=== PATIENT | female | born 1980 | race Caucasian/White ===

== ENCOUNTER 2017-09-01 18:41 | Emergency (ER) | payer OTHER ==
[2017-09-01 18:47] VITALS: BP 132/84; PULSE 79; TEMP 98.8; BMI 24.1
--- NOTE | 2017-09-01 20:00 | PDOC ---
History of Present Illness - History of Present Illness Initial Comments: 09/01/17 19:48 The patient is a 37 yo f w/ PMH IBS who comes into the ED c/o a 1 day history of abdominal cramping, nausea, and bloody diarrhea. The patient states that she began to have a gradual onset of lower abdominal cramping, nausea and frequent bowel movements. The bowel movements started off solid, then progressed to watery diarrhea. For the last 5-6 bowel movements, the patient noticed "red flakes" in the bottom of the toilet and on the toilet tissue. The patient also experienced chills, promping her to seek medical evaluation. The patient went to an urgent care center where a rectal exam was performed, revealing hemorrhoids and heme positive stool. The patient was then sent to the ER from urgent care. The patient states that this diarrhea episode is different from her normal episodes in that it is associated with chills and the blood. The patient had a similar episode of blood in her stools in the past, but states that they were not this severe and were not associated with chills. The patient does not follow regularly with a GI doctor, but was diagnosed with IBS by one 7 years ago. 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 Patient denies fever, vomiting, chest pain, shortness of breath, sick contacts or household members with similar symptoms. 09/01/17 20:54 <Manjeet Kern - Last Filed: 09/01/17 22:47> <Diana Jacobs - Last Filed: 09/02/17 04:49> - General Chief Complaint: Rectal Bleed Stated Complaint: RECTAL BLEED Time Seen by Provider: 09/01/17 19:21 Past History - Travel Traveled outside of the country in the last 30 days: No Close contact w/someone who was outside of country & ill: No - Past Medical History COPD: No GI Disorders: Yes (MILD IBS) - Suicide/Smoking/Psychosocial Hx Smoking History: Never smoked Hx Alcohol Use: Yes (SOCIAL) Drug/Substance Use Hx: No Substance Use Type: None <Manjeet Kern - Last Filed: 09/01/17 22:47> <Diana Jacobs - Last Filed: 09/02/17 04:49> - Past Medical History Allergies/Adverse Reactions: Allergies Allergy/AdvReac Type Severity Reaction Status Date / Time amoxicillin Allergy Hives Verified 09/01/17 20:33 Sulfa (Sulfonamide Allergy Hives Verified 09/01/17 20:33 Antibiotics) Home Medications: Ambulatory Orders NK [No Known Home Medication] 09/01/17 Review of Systems - Review of Systems Constitutional: Yes: Chills. No: Fever, Malaise Respiratory: No: Cough, Shortness of Breath Cardiac (ROS): No: Chest Pain, Edema, Palpitations ABD/GI: Yes: Blood Streaked Bowels, Diarrhea, Nausea. No: Abdominal Distended, Abd. Pain w/ defecation, Vomiting, Tarry Stools : No: Burning, Dysuria, Frequency Musculoskeletal: No: Back Pain, Joint Pain Neurological: No: Headache, Numbness, Tingling <Manjeet Kern - Last Filed: 09/01/17 22:47> *Physical Exam - Vital Signs Last Vital Signs Temp Pulse Resp BP Pulse Ox 98.8 F 79 20 132/84 98 09/01/17 18:43 09/01/17 18:43 09/01/17 18:43 09/01/17 18:43 09/01/17 18:43 - Physical Exam General Appearance: Yes: Appropriately Dressed. No: Apparent Distress Neck: positive: Trachea midline Respiratory/Chest: positive: Lungs Clear, Normal Breath Sounds. negative: Chest Tender, Respiratory Distress, Accessory Muscle Use Cardiovascular: positive: Regular Rhythm, Regular Rate, S1, S2. negative: Edema , JVD, Murmur, Gallop/S3, Gallop/S4 Gastrointestinal/Abdominal: positive: Normal Bowel Sounds, Tender (mild discomfort in the lower quadrants), Flat, Soft, Increased Bowel Sounds. negative: Distended, Guarding, Rebound Musculoskeletal: positive: Normal Inspection Extremity: positive: Normal Inspection Integumentary: positive: Normal Color, Dry, Warm Neurologic: positive: Fully Oriented, Alert, Normal Mood/Affect, Normal Response <Manjeet Kern - Last Filed: 09/01/17 22:47> - Vital Signs Last Vital Signs Temp Pulse Resp BP Pulse Ox 98.8 F 79 20 132/84 98 09/01/17 18:43 09/01/17 18:43 09/01/17 18:43 09/01/17 18:43 09/01/17 18:43 <Diana Jacobs - Last Filed: 09/02/17 04:49> ED Treatment Course - LABORATORY CBC & Chemistry Diagram: 09/01/17 21:02 09/01/17 21:45 <Manjeet Kern - Last Filed: 09/01/17 22:47> - LABORATORY CBC & Chemistry Diagram: 09/01/17 21:02 09/01/17 21:45 - ADDITIONAL ORDERS Additional order review: Laboratory Results 09/01/17 09/01/17 09/01/17 21:45 21:17 21:02 PT with INR 12.10 H INR 1.07 Sodium 139 Potassium 3.3 L Chloride 106 Carbon Dioxide 25 Anion Gap 8 BUN 10 Creatinine 0.5 L Creat Clearance w eGFR > 60 Random Glucose 86 Calcium 7.6 L Total Bilirubin 0.6 AST 14 L ALT 21 Alkaline Phosphatase 44 L Total Protein 6.0 L Albumin 3.4 Stool Occult Blood Negative 09/01/17 21:02 PT with INR INR Sodium Cancelled Potassium Cancelled Chloride Cancelled Carbon Dioxide Cancelled Anion Gap Cancelled BUN Cancelled Creatinine Cancelled Creat Clearance w eGFR Cancelled Random Glucose Cancelled Calcium Cancelled Total Bilirubin Cancelled AST Cancelled ALT Cancelled Alkaline Phosphatase Cancelled Total Protein Cancelled Albumin Cancelled Stool Occult Blood 09/01/17 21:02 RBC 4.28 MCV 91.7 MCHC 34.0 RDW 12.9 MPV 8.9 Neutrophils % 70.1 Lymphocytes % 22.9 Monocytes % 5.6 Eosinophils % 1.1 Basophils % 0.3 - Medications Given in the ED: ED Medications Discontinued Medications Generic Name Dose Route Start Last Admin Trade Name Torreyq PRN Reason Stop Dose Admin Potassium Chloride 40 meq 09/01/17 22:26 09/01/17 22:38 K-Dur - PO 09/01/17 22:27 40 meq ONCE ONE Administration Sodium Chloride 1,000 ml 09/01/17 20:41 09/01/17 21:06 Normal Saline - IV 09/01/17 20:42 1,000 ml ONCE ONE Administration <Diana Jacobs - Last Filed: 09/02/17 04:49> Medical Decision Making - Medical Decision Making 09/01/17 20:04 The patient is a 37 yo f w/ PMH IBS who comes into the ED c/o a one day history of abdominal cramping, nausea, diarrhea and blood flakes in her stool. The patient has had a similar episode in the past, but states that it was not associated with chills. Patient states that she had no measurable fever at home and is afebrile in the ED. -CBC, CMP -UA, upreg -1L NS bolus 09/01/17 22:38 -CBC WNL, no acute Hb drop noted. -CMP shows low potassium at 3.3, will replete with 40meq KCL PO -Guiac negative for occult blood. -given the patient is having no active diarrhea at this time and her guiac is negative, the patient is stable for discharge home with instructions to follow up with her PCP and a software configuration manager. -Return parameters discussed. <Manjeet Kern - Last Filed: 09/01/17 22:47> *DC/Admit/Observation/Transfer - Discharge Dispostion Admit: No <Manjeet Kern - Last Filed: 09/01/17 22:47> <Diana Jacobs - Last Filed: 09/02/17 04:49> Diagnosis at time of Disposition: Diarrhea Qualifiers: Diarrhea type: unspecified type Qualified Code(s): R19.7 - Diarrhea, unspecified - Discharge Dispostion Disposition: HOME Condition at time of disposition: Improved - Referrals Referrals: Ting Zheng [Primary Care Provider] - Derek Moffett MD [Staff Physician] - - Patient Instructions Additional Instructions: You should follow up with your primary care provider within 1-2 days of discharge home. You should also follow with a software configuration manager within 1-2 days of discharge home. We have provided the information for a software configuration manager if you are unable to find one. If you begin to develop worsening diarrhea, if your diarrhea does not get better after a while, of your develop worsening blood in your stool, if your abdominal cramping gets worse or if any of your symptoms get worse, please call your doctor or return to the Emergency Department. - Post Discharge Activity ED Attending (Resident) HPI <Manjeet Kern - Last Filed: 09/01/17 22:47> - General History Source: Patient, Spouse Exam Limitations: No Limitations - History of Present Illness Timing/Duration: 24 hours Severity: mild Modifying Factors: worse with: cold therapy, eating, immobilization, medication , movement, rest, other Associated Symptoms: reports: other (Abd cramping). denies: denies symptoms, chest pain, cough, diaphoresis, fever/chills, headaches, loss of appetite, malaise, nausea/vomiting, rash, seizure, shortness of breath, syncope, weakness - Attending Attestation I agree with resident's note.: Yes <Diana Jacobs - Last Filed: 09/02/17 04:49> - General Chief Complaint: Rectal Bleed Stated Complaint: RECTAL BLEED Time Seen by Provider: 09/01/17 19:21
[2017-09-01] MEDS ORDERED: SODIUM CHLORIDE 0.9% 500 ML INFUS.BAG IV ONE (20:41)
[2017-09-01 21:11] LABS: BASOPHIL 0.3 % (0-2.0); EOSINOPHIL 1.1 % (0-4.5); MCH 31.2 pg (25.7-33.7); MEAN CELL VOLUME 91.7 fl (80-96); MEAN PLT VOLUME 8.9 fl (7.5-11.1); NEUTROPHILS 70.1 % (42.8-82.8); PLATELET COUNT 186 K/MM3 (134-434); RDW 12.9 % (11.6-15.6); WHITE BLOOD COUNT 7.6 K/mm3 (4.0-10.0)
[2017-09-01 21:50] LABS: INR 1.07 (0.82-1.09); PROTHROMBIN TIME (PATIENT) 12.1 SEC (9.98-11.88)
[2017-09-01 22:18] LABS: ALBUMIN 3.4 g/dl (3.4-5.0); ANION GAP 8 (8-16); BILIRUBIN,TOTAL 0.6 mg/dL (0.2-1.0); CALCIUM 7.6 mg/dL (8.5-10.1); CO2 25 mmol/L (21-32); CREATININE 0.5 mg/dL (0.55-1.02); GLUCOSE,RANDOM 86 mg/dL (74-106); SGOT/AST 14 U/L (15-37); SGPT/ALT 21 U/L (12-78)
[2017-09-01 22:20] LABS: ALK PHOS 44 U/L (45-117)
[2017-09-01] MEDS ORDERED: POTASSIUM CHLORIDE TABS 20 MEQ TABLET.ER (FP) PO ONE ×2 (22:26→22:34)
== END 2017-09-01 22:53 | disposition home or self-care (01) ==
LOC: JER 18:41
DX: R19.7 Diarrhea, unspecified (principal); E87.6 Hypokalemia
CPT/HCPCS: 36415; 80053; 82272; 85025; 85610; 99283-25